=== PATIENT | female | born 1995 | race American Indian/Alaskan Native ===

== ENCOUNTER 2018-07-11 20:31 | Emergency (ER) | payer MEDICAID ==
[~2018-07-11] VITALS: Ht 149.9 cm; Wt 81.0 kg
[2018-07-11 21:26] LABS: CLARITY,URINE CLEAR (Clear); COLOR,URINE YELLOW (Yellow); GLUCOSE, URINE NEGATIVE (Neg); KETONES,URINE NEGATIVE (Neg); LEUKOCYTE ESTERASE ,URINE NEGATIVE (Neg); NITRITES, URINE NEGATIVE (Neg); OCCULT BLOOD,URINE NEGATIVE (Neg); PROTEIN,URINE TRACE mg/dl (Neg); UROBILINOGEN,URINE 0.2 E.U/dL (0.2-1.0)
[2018-07-11 21:29] LABS: BASOPHILS % (AUTO) 0.4 % (0-1); EOSINOPHILS # (AUTO) 0.4 X10'3 (0-0.9); EOSINOPHILS % (AUTO) 5.2 % (0-6); HEMATOCRIT 42.1 % (35.0-45.0); HEMOGLOBIN 14.1 g/dl (12.0-16.0); LYMPHOCYTES % (AUTO) 35.9 % (21-51); MEAN CORPUSCULAR HEMOGLOBIN 28.8 PG (27.0-31.0); MEAN CORPUSCULAR HGB CONC 33.4 % (33.0-36.5); MEAN CORPUSCULAR VOLUME 86.4 FL (78-98); MEAN PLATELET VOLUME 10.6 FL (7.4-10.4); MONOCYTES # (AUTO) 0.5 X10'3 (0-0.9); MONOCYTES % (AUTO) 6.2 % (2-12); NEUTROPHILS # (AUTO) 4.4 X10'3 (1.8-7.7); NEUTROPHILS % (AUTO) 52.3 % (42-75); PLATELET COUNT 313 X10'3 (140-440); RED BLOOD COUNT 4.88 X10'6 (4.20-5.60); RED CELL DISTRIBUTION WIDTH 14.8 % (11.5-14.5); WHITE BLOOD COUNT 8.4 X10'3 (4.5-11.0)
[2018-07-11 21:31] LABS: URINE HCG NEGATIVE (NEG)
[2018-07-11 21:32] LABS: UA COLLECTION TYPE CLN CATCH MIDSTREAM
[2018-07-11 21:33] LABS: BACTERIA,URINE FEW /HPF (Neg); RBC,URINE 0-2 /HPF (0-2); SQUAMOUS EPITHELIAL CELL,UR FEW /LPF (FEW); WBC,URINE 0-4 /HPF (0-4)
[2018-07-11 21:36] LABS: PROTHROMBIN TIME 10.2 SECONDS (9.0-12.0)
[2018-07-11 21:41] LABS: ALANINE AMINOTRANSFERASE 28 U/L (12-78); ALBUMIN 3.7 G/DL (3.4-5.0); ALBUMIN/GLOBULIN RATIO 0.9 (1.1-1.5); ALKALINE PHOSPHATASE 97 IU/L (46-116); ANION GAP 7 (8-16); ASPARTATE AMINO TRANSFERASE 13 U/L (10-37); BILIRUBIN,TOTAL 0.3 MG/DL (0.1-1.0); BLOOD UREA NITROGEN 16 MG/DL (7-18); BUN/CREATININE RATIO 21.3 (6.6-38.0); CALCIUM 8.9 MG/DL (8.5-10.1); CHLORIDE 104 MMOL/L (99-107); CREATININE 0.75 MG/DL (0.40-0.90); GLUCOSE 89 MG/DL (70-104); POTASSIUM 3.9 MMOL/L (3.5-5.1); SODIUM 141 MMOL/L (135-145); TOTAL CARBON DIOXIDE 29.8 MMOL/L (24-32); TOTAL PROTEIN 7.8 G/DL (6.4-8.2); eGFR > 90 ML/MIN
[2018-07-11] MEDS ORDERED: normal saline 1000ml 1,000 ML IV ONE (22:45)
[2018-07-11] MEDS ORDERED: ondansetron/PF 4mg/2ml inj IV ONE (22:45)
[2018-07-11] MEDS ORDERED: LORA-269 PO (23:46)
[2018-07-11 23:54] VITALS: BP 108/72
== END 2018-07-11 23:55 | disposition home or self-care (01) ==
LOC: ER 20:32
DX: R11.10 Vomiting, unspecified (principal); E86.0 Dehydration; R55 Syncope and collapse; F41.9 Anxiety disorder, unspecified; J45.909 Unspecified asthma, uncomplicated; Z90.49 Acquired absence of other specified parts of digestive tract; Z90.710 Acquired absence of both cervix and uterus; Z79.899 Other long term (current) drug therapy
CPT/HCPCS: 36415; 80053; 81001; 81025; 85025; 85610; 96374; 99284; J2405

== ENCOUNTER 2018-07-27 19:38 | Emergency (ER) | payer MEDICAID ==
[~2018-07-27] VITALS: Ht 149.9 cm; Wt 110.3 kg
[~2018-07-27 19:38] MED LIST: LORA-269 PO
[2018-07-27] MEDS ORDERED: ibuprofen tablet 400 MG TABLET PO ONE (21:40)
[2018-07-27] MEDS ORDERED: HYDROcodone/acetaminophen 10/325mg tab PO ONE (21:40)
[2018-07-27 22:52] VITALS: BP 113/67
== END 2018-07-27 22:56 | disposition home or self-care (01) ==
LOC: ER 19:39
DX: S20.222A Contusion of left back wall of thorax, initial encounter (principal); M54.5 Low back pain; M79.622 Pain in left upper arm; J45.909 Unspecified asthma, uncomplicated; E66.9 Obesity, unspecified; F12.90 Cannabis use, unspecified, uncomplicated; Z90.49 Acquired absence of other specified parts of digestive tract; Z98.51 Tubal ligation status; Z98.890 Other specified postprocedural states; W01.0XXA Fall on same level from slipping, tripping and stumbling without subsequent striking against object, initial encounter; Y93.89 Activity, other specified; Y92.89 Other specified places as the place of occurrence of the external cause; Y99.8 Other external cause status
CPT/HCPCS: 72100; 99284